=== PATIENT | male | born 1980 | race Two or more races ===

== ENCOUNTER 2017-04-01 12:04 | Day surgery (SDC) | payer OTHER ==
[2017-04-01 13:50] LABS: BASOPHIL 0.5 % (0-2.0); EOSINOPHIL 0.4 % (0-4.5); MCH 27.1 pg (25.7-33.7); MCHC 32.3 g/dl (32.0-35.9); MEAN PLT VOLUME 8.1 fl (7.5-11.1); NEUTROPHILS 79.9 % (42.8-82.8); PLATELET COUNT 236 K/MM3 (134-434); RDW 14.3 % (11.9-15.9); WHITE BLOOD COUNT 12.3 K/mm3 (4.0-10.0)
[2017-04-01 14:24] LABS: ALBUMIN 3.7 g/dl (3.4-5.0); ALK PHOS 91 U/L (45-117); ANION GAP 8 (8-16); BILIRUBIN,TOTAL 0.4 mg/dL (0.2-1.0); CALCIUM 8.9 mg/dL (8.5-10.1); CO2 28 mmol/L (21-32); CREATININE 0.8 mg/dL (0.7-1.3); GLUCOSE,RANDOM 84 mg/dL (74-106); SGOT/AST 13 U/L (15-37); SGPT/ALT 40 U/L (12-78); TOT PROT 7.8 g/dl (6.4-8.2)
[2017-04-01] MEDS ORDERED: morphine CARPU-JECT 4 MG/1 ML DISP.SYRIN IVPUSH ONE (14:34)
--- NOTE | 2017-04-01 14:36 | PDOC ---
Attending Attestation - Resident Resident Name: MillicentRafy - ED Attending Attestation I have performed the following: I have examined & evaluated the patient, The case was reviewed & discussed with the resident, I agree w/resident's findings & plan, Exceptions are as noted - HPI HPI: 04/01/17 14:35 Agree with the resident's HPI as documented in the electronic medical record. - Physicial Exam PE: 04/01/17 14:35 Agree with the resident's physical examination as documented in the electronic medical record. - Medical Decision Making 04/01/17 14:35 37-year-old male with no significant past medical history presents the emergency department with three-day history of rectal pain and swelling consistent with a perianal abscess. Plan: 1. Labs 2. Surgical consult for drainage as patient has a very low tolerance to examination of the area 3. Pain management 4. Observe and reevaluate
[2017-04-01] MEDS ORDERED: PIPERACILLIN/TAZOB 3.375 GM/50 ML PRE-DOCKED IV ONE (14:45)
[2017-04-01] MEDS ORDERED: PIPERACILLIN/TAZOB 3.375 GM 50 ML IVPB ONE (15:12)
[2017-04-01] MEDS ORDERED: morphine CARPU-JECT 2 MG/1 ML DISP.SYRIN ONE (15:12)
--- NOTE | 2017-04-01 15:17 | PDOC ---
History of Present Illness - General Chief Complaint: Hemorrhoids Stated Complaint: PAIN Time Seen by Provider: 04/01/17 12:35 - History of Present Illness Initial Comments: 04/01/17 15:13 37M w/ no PMH presenting with 1 week of pain in anus. Pt reports that his pain started a week ago, is knife-like, 10/10, worse with bowel movements. It was initially improved with 600mg ibuprofen q6h and depocaine, but not in the last few days. He reports feeling a swelling in his anus. He denies hx of constipation or any other GI problems. He denies SOB, n/v/d, and abdominal pain. 04/01/17 15:19 Past History - Past Medical History Allergies/Adverse Reactions: Allergies Allergy/AdvReac Type Severity Reaction Status Date / Time No Known Allergies Allergy Verified 04/01/17 12:20 Home Medications: Ambulatory Orders NK [No Known Home Medication] 04/01/17 Other medical history: denies Comment:: 04/01/17 15:16 PMH: none PSH: appendectomy, hernia Meds: none allergies: NKDA Fam Hx: none Social Hx: denies toxic habits - Surgical History Abdominal Surgery: Yes (hernia repair) Appendectomy: Yes - Immunization History Immunization Up to Date: Yes - Psycho/Social/Smoking Cessation Hx Suicidal Ideation: No Smoking History: Never smoked Hx Alcohol Use: No Drug/Substance Use Hx: No Review of Systems - Review of Systems Comments:: 04/01/17 15:16 GENERAL: No fever, chills, night sweats, or weakness. HEAD, EYES, EARS, NOSE AND THROAT: No change in vision, ear pain, or sore throat CARDIOVASCULAR: No chest pain or palpitations RESPIRATORY: No cough, wheezing, or hemoptysis. GASTROINTESTINAL: No nausea, vomiting, diarrhea, constipation, + blood in the stool. GENITOURINARY: No dysuria, frequency, or urgency MUSCULOSKELETAL: No joint or muscle swelling or pain. SKIN: No rashes or pruritis ENDOCRINE: No increased thirst. No abnormal weight change NEUROLOGIC: No headache, dizziness, loss of consciousness, or change in strength /sensation. *Physical Exam - Vital Signs Last Vital Signs Temp Pulse Resp BP Pulse Ox 98.5 F 101 H 18 132/86 100 04/01/17 12:20 04/01/17 12:20 04/01/17 12:20 04/01/17 12:20 04/01/17 12:20 - Physical Exam Comments: 04/01/17 15:17 GENERAL: Awake, alert, and fully oriented, in distress HEAD: normocephalic, atraumatic HEENT: PERRLA, EOMI, sclera anicteric, conjunctiva clear, hearing grossly normal , nares patent, oropharynx clear without exudate, moist mucosa NECK: Normal ROM, supple, no lymphadenopathy, JVD, or masses HEART: Regular rate and rhythm, normal S1 and S2, no murmurs, rubs or gallops, peripheral pulses normal and equal bilaterally. LUNGS: CTAB, no wheezing, no rales ABDOMEN: Soft, nontender, nondistended, normoactive bowel sounds. No guarding, no rebound. No masses EXTREMITIES: Normal range of motion, no edema. SKIN: Warm, dry, no rashes or lesions noted. NEUROLOGICAL: Cranial nerves II through XII grossly intact. Normal speech, normal gait, no focal sensorimotor deficits Rectal: visualization very difficult due to tenderness, abscess within anus, extremely tender to palpation, ED Treatment Course - LABORATORY CBC & Chemistry Diagram: 04/01/17 13:30 04/01/17 13:30 - ADDITIONAL ORDERS Additional order review: Laboratory Results 04/01/17 13:30 Sodium 139 Potassium 4.2 Chloride 103 Carbon Dioxide 28 Anion Gap 8 BUN 10 Creatinine 0.8 Creat Clearance w eGFR > 60 Random Glucose 84 Calcium 8.9 Total Bilirubin 0.4 AST 13 L ALT 40 Alkaline Phosphatase 91 Total Protein 7.8 Albumin 3.7 04/01/17 13:30 RBC 5.61 H MCV 84.0 MCHC 32.3 RDW 14.3 MPV 8.1 Neutrophils % 79.9 Lymphocytes % 11.3 Monocytes % 7.9 Eosinophils % 0.4 Basophils % 0.5 - Medications Given in the ED: ED Medications Discontinued Medications Generic Name Dose Route Start Last Admin Trade Name Freq PRN Reason Stop Dose Admin Oxycodone/Acetaminophen 1 combo 04/01/17 13:12 04/01/17 13:30 Percocet 5/325 - PO 04/01/17 13:13 1 combo ONCE ONE Administration Medical Decision Making - Medical Decision Making 04/01/17 15:19 04/01/17 15:19 37M w/ no PMH presenting with 1 week of severe anal pain secondary to anal abscess. Pt admitted for surgery. *DC/Admit/Observation/Transfer Diagnosis at time of Disposition: Perianal abscess - Discharge Dispostion Condition at time of disposition: Stable Admit: Yes
[2017-04-01] MEDS ORDERED: MIDAZOLAM HCL 2 MG/2 ML SINGLE DOSE VIAL ONE ×2 (16:22)
--- NOTE | 2017-04-01 16:28 | HP ---
Admitting History and Physical - Admission Chief Complaint: Rectal abscess/pain History of Present Illness: HPI: This is a 37 year old male without significant past medical hx. He reported to eating spicy food and then got a anal fissure. He then had a 20 hr bus ride round trip which worsened the mele rectal region with increased swelling and pain for a few days. Today, he is exquisitely tender and unable to tolerate a exam in ED. Surgery was called for I&D under sedation in the OR. Currently in Pre op he is in pain, and its painful for him to apply pressure by sitting up in bed. He denies fever, chills, sob, chest pain. History Source: Patient Limitations to Obtaining History: No Limitations - Smoking History Smoking history: Never smoked - Alcohol/Substance Use Hx Alcohol Use: No Home Medications - Allergies Allergies/Adverse Reactions: Allergies Allergy/AdvReac Type Severity Reaction Status Date / Time No Known Allergies Allergy Verified 04/01/17 12:20 - Home Medications Home Medications: Ambulatory Orders NK [No Known Home Medication] 04/01/17 Review of Systems - Review of Systems Constitutional: reports: No Symptoms Eyes: reports: No Symptoms HENT: reports: No Symptoms Neck: reports: No Symptoms Cardiovascular: reports: No Symptoms Respiratory: reports: No Symptoms Gastrointestinal: reports: No Symptoms Genitourinary: reports: Other (rectal tenerness, swelling) Musculoskeletal: reports: No Symptoms Integumentary: reports: No Symptoms Neurological: reports: No Symptoms Endocrine: reports: No Symptoms Hematology/Lymphatic: reports: No Symptoms Psychiatric: reports: No Symptoms Physical Examination Vital Signs: Vital Signs Temperature 98.5 F 04/01/17 12:20 Pulse Rate 101 H 04/01/17 12:20 Respiratory Rate 18 04/01/17 12:20 Blood Pressure 132/86 04/01/17 12:20 O2 Sat by Pulse Oximetry (%) 100 04/01/17 12:20 Constitutional: Yes: Calm Eyes: Yes: Conjunctiva Clear HENT: Yes: Atraumatic Neck: Yes: Supple Cardiovascular: Yes: Regular Rate and Rhythm, S1, S2 Respiratory: Yes: Regular, CTA Bilaterally Gastrointestinal: Yes: Normal Bowel Sounds, Soft Renal/: Yes: Other (unable to ascess rectum, very tender) Musculoskeletal: Yes: WNL Extremities: Yes: WNL Edema: No Peripheral Pulses WNL: No Neurological: Yes: Alert, Oriented, Cran Nerves II-XII Intact Psychiatric: Yes: Alert, Oriented Problem List - Problems (1) Perianal abscess Code(s): K61.0 - ANAL ABSCESS Assessment/Plan Assessment: 37 year old male admitted with mele rectal abscess Plan: 1. Mele rectal abscess - For surgery I&D today - Zosyn in ED - Follow wound cx - Start ceftriaxone, flagyl - Morphine prn 2. PPx - SCDs Visit type - Emergency Visit Emergency Visit: Yes ED Registration Date: 04/01/17 Care time: The patient presented to the Emergency Department on the above date and was hospitalized for further evaluation of their emergent condition. - New Patient This patient is new to me today: Yes Date on this admission: 04/01/17 - Critical Care Critical Care patient: No
--- NOTE | 2017-04-01 16:46 | CONSULT ---
- Consultation REQUESTING PROVIDER: Belgica Perez MD CONSULT REQUEST: We have been asked to surgically evaluate this patient for rectal pain PCP:Shaista Carrillo HISTORY OF PRESENT ILLNESS: CTSP for evaluation and management of sudden rectal pain; NOC; it started after eating spicy food; he has no other GI c/o. PMHx: none PSHx: none Home Medications Medication Instructions Recorded NK [No Known Home Medication] 04/01/17 Allergies Allergy/AdvReac Type Severity Reaction Status Date / Time No Known Allergies Allergy Verified 04/01/17 12:20 PHYSICAL EXAM: GENERAL: Awake, alert, and fully oriented, in no acute distress. HEAD: Normal with no signs of trauma. EYES: sclera anicteric, conjunctiva clear. ABDOMEN: Soft, nontender, not distended, normoactive bowel sounds, no guarding, no rebound, no masses. No organomegaly. MUSCULOSKELETAL: Normal ROM at all joints. No bony deformities or tenderness. No CVA tenderness. UPPER EXTREMITIES: 2+ pulses, warm, well-perfused. No cyanosis. Cap refill <2 seconds. No peripheral edema. LOWER EXTREMITIES: 2+ pulses, warm, well-perfused. No calf tenderness. No peripheral edema. NEUROLOGICAL: Normal speech, gait not observed. PSYCH: Cooperative. Good eye contact. Appropriate mood and affect. SKIN: Warm, dry, normal turgor, no rashes or lesions noted. RECTAL: TTP in perineum and perirectal area precluding focused exam Vital Signs Temperature 98.5 F 04/01/17 12:20 Pulse Rate 101 H 04/01/17 12:20 Respiratory Rate 18 04/01/17 12:20 Blood Pressure 132/86 04/01/17 12:20 O2 Sat by Pulse Oximetry (%) 100 04/01/17 12:20 Lab Results WBC 12.3 K/mm3 (4.0-10.0) H 04/01/17 13:30 RBC 5.61 M/mm3 (4.00-5.60) H 04/01/17 13:30 Hgb 15.2 GM/dL (11.7-16.9) 04/01/17 13:30 Hct 47.1 % (35.4-49) 04/01/17 13:30 MCV 84.0 fl (80-96) 04/01/17 13:30 MCHC 32.3 g/dl (32.0-35.9) 04/01/17 13:30 RDW 14.3 % (11.9-15.9) 04/01/17 13:30 Plt Count 236 K/MM3 (134-434) 04/01/17 13:30 Sodium 139 mmol/L (136-145) 04/01/17 13:30 Potassium 4.2 mmol/L (3.5-5.1) 04/01/17 13:30 Chloride 103 mmol/L (98-107) 04/01/17 13:30 Carbon Dioxide 28 mmol/L (21-32) 04/01/17 13:30 Anion Gap 8 (8-16) 04/01/17 13:30 BUN 10 mg/dL (7-18) 04/01/17 13:30 Creatinine 0.8 mg/dL (0.7-1.3) 04/01/17 13:30 Random Glucose 84 mg/dL (74-106) 04/01/17 13:30 Calcium 8.9 mg/dL (8.5-10.1) 04/01/17 13:30 IMP: perirectal abscess PLAN: EUA; I and D perianal/perirectal abscess; r/b/t d/w the patient; possible fistula in ano d/w the patient; informed consent obtained. Toy Evangelista MD FACS Visit type - Case Type Case Type: ED Admission - Emergency Emergency Visit: Yes ED Registration Date: 04/01/17 Care time: The patient presented to the Emergency Department on the above date and was hospitalized for further evaluation of their emergent condition. - New patient This patient is new to me today: Yes Date on this admission: 04/01/17 - Critical Care Critical Care patient: No
[2017-04-01] MEDS ORDERED: morphine CARPU-JECT 4 MG/1 ML DISP.SYRIN IVPUSH PRN (16:47)
[2017-04-01] MEDS ORDERED: PROPOFOL 20 ML ONE (16:51)
[2017-04-01] MEDS ORDERED: ACETAMINOPHEN 325 MG TABLET (FP) PO PRN (16:51)
[2017-04-01] MEDS ORDERED: ONDANSETRON 4 MG/2 ML VIAL IVPB PRN (16:51)
[2017-04-01] MEDS ORDERED: SODIUM CHLORIDE 1,000 ML IV SCH (17:00)
[2017-04-01] MEDS ORDERED: morphine CARPU-JECT 2 MG/1 ML DISP.SYRIN IVPUSH PRN (17:10)
[2017-04-01] MEDS ORDERED: PROMETHAZINE HCL 25 MG/1 ML VIAL IVPUSH PRN (17:21)
[2017-04-01] MEDS ORDERED: ONDANSETRON 4 MG/2 ML VIAL IVPUSH PRN (17:21)
[2017-04-01] MEDS ORDERED: LACTATED RINGERS SOLUTION 1,000 ML IV SCH (17:30)
[2017-04-01] MEDS ORDERED: METRONIDAZOLE 500 MG PREMIXED 100 ML IVPB SCH (18:00)
[2017-04-01] MEDS ORDERED: METRONIDAZOLE 500 MG PREMIXED 100 ML IVPB ONE (18:15)
[2017-04-01] MEDS ORDERED: cefTRIAXone 1 GM/50 ML BAG (PRE-DOCKED) IVPB ONE (19:12)
--- NOTE | 2017-04-01 19:20 | OP ---
DATE OF OPERATION: 04/01/2017 PREOPERATIVE DIAGNOSIS: Left perianal/perirectal abscess. POSTOPERATIVE DIAGNOSIS: Left perianal/perirectal abscess. PROCEDURE: Exam under anesthesia, and incision and drainage of left perianal/perirectal abscess. SURGEON: Toy Evangelista M.D. ANESTHESIA: Spinal. OPERATIVE FINDINGS: A left perianal, perirectal abscess. The rest of the findings were unremarkable. PROCEDURE: The patient was placed on the operating room table in supine position, and after the induction of regional anesthesia, patient was placed in dorsal lithotomy position. Timeout was taken, and the perianal and perirectal area were prepped with Betadine and draped in sterile fashion. Exam under anesthesia did not reveal any digital rectal masses, and showed a bulging soft tissue in the left perianal, perirectal area consistent with an abscess. Incision was made with scalpel and taken down through skin and subcutaneous tissue, and purulent material drained and sent for culture and sensitivity. All loculations were digitally broken up, and then copious irrigation was carried out with normal saline and peroxide. Hemostasis was secured with electrocautery, and then the wound was packed with 1-inch iodoform gauze. Dry sterile dressings were placed, and a Roman shield dressing was placed, and the procedure terminated at this point, and the patient transferred to the postanesthesia care unit in stable condition, awake and alert. Estimated blood loss minimal. Drains 1-inch iodoform packing. Specimen, culture and sensitivity of abscess to microbiology. The specimens none. I, Even Tonja, was physically present in the operating room from the time the patient was placed on the operating room table until he was transferred to the post-anesthesia care unit in my accompaniment. MD SHARRON Mendieta/[id number]
[2017-04-01] MEDS: CEFTRIAXONE 50 ML IVPB SCH (19:40)
[2017-04-01 20:35] VITALS: BMI 31.0
[2017-04-01] MEDS ORDERED: oxyCODONE HCL 5 MG TABLET PO ONE (23:45)
[2017-04-01] MEDS ORDERED: ACETAMINOPHEN 325 MG TABLET (FP) PO ONE (23:45)
[2017-04-02] MEDS: METRONIDAZOLE 500 MG PREMIXED 100 ML IVPB SCH ×2 (01:54→09:18)
[2017-04-02] MEDS ORDERED: oxyCODONE HCL 5 MG TABLET PO PRN (08:00)
[2017-04-02] MEDS ORDERED: oxyCODONE HCL 5 MG TABLET PO ONE (08:30)
[2017-04-02 08:50] LABS: BASOPHIL 0.4 % (0-2.0); EOSINOPHIL 1.3 % (0-4.5); MCHC 32.5 g/dl (32.0-35.9); MEAN CELL VOLUME 82.9 fl (80-96); MEAN PLT VOLUME 8.3 fl (7.5-11.1); NEUTROPHILS 68.8 % (42.8-82.8); PLATELET COUNT 240 K/MM3 (134-434); RDW 13.8 % (11.9-15.9); WHITE BLOOD COUNT 10.1 K/mm3 (4.0-10.0)
[2017-04-02 09:22] LABS: ALBUMIN 3.3 g/dl (3.4-5.0); ANION GAP 8 (8-16); BILIRUBIN,TOTAL 0.7 mg/dL (0.2-1.0); CALCIUM 8.3 mg/dL (8.5-10.1); CO2 27 mmol/L (21-32); CREATININE 0.7 mg/dL (0.7-1.3); GLUCOSE,RANDOM 88 mg/dL (74-106); SGOT/AST 9 U/L (15-37); SGPT/ALT 26 U/L (12-78)
[2017-04-02 09:23] LABS: ALK PHOS 82 U/L (45-117)
[2017-04-02] MEDS: CEFTRIAXONE 50 ML IVPB SCH (10:00)
[2017-04-02] MEDS ORDERED: ACETAMINOPHEN 325 MG TABLET (FP) ONE (10:16)
[2017-04-02] MEDS ORDERED: ACETAMINOPHEN 325 MG TABLET (FP) PO PRN (10:16)
--- NOTE | 2017-04-02 10:56 | PN ---
Progress Note (short form) - Note Progress Note: Anesthesia post op note POD#1 S/P I&D perianal abscess, under spinal. Pat seen and examined. VSS. No apparent post anesthesia complications. signed off.
--- NOTE | 2017-04-02 14:03 | DS ---
Physical Exam: SUBJECTIVE: Patient seen and examined. He is tolerating the pain, he is on his side to off set pressure. Denies fever, chills. Dressing changed by Dr. Evangelista OBJECTIVE: Vital Signs Period Temp Pulse Resp BP Sys/Barriga Pulse Ox Last 24 Hr 98.1 F-100 F 70-86 14-20 96-125/52-79 95-99 PE Neuro: alert, awake, cn 2-12intact Pulm: CTAB CV: s1 s2 rrr no mrg Abd: s nt nd +bs : rectal tenderness, dressing sanguinous Ext: no le edema Laboratory Results - last 24 hr 04/01/17 04/02/17 04/02/17 13:30 07:00 07:00 WBC 10.1 H RBC 5.06 Hgb 13.7 Hct 42.0 MCV 82.9 MCH 27.0 MCHC 32.5 RDW 13.8 Plt Count 240 MPV 8.3 Neutrophils % 68.8 Lymphocytes % 19.2 D Monocytes % 10.3 H Eosinophils % 1.3 D Basophils % 0.4 Sodium 139 137 Potassium 4.2 4.1 Chloride 103 102 Carbon Dioxide 28 27 Anion Gap 8 8 BUN 10 10 Creatinine 0.8 0.7 Creat Clearance w eGFR > 60 > 60 Random Glucose 84 88 Calcium 8.9 8.3 L Total Bilirubin 0.4 0.7 D AST 13 L 9 L D ALT 40 26 D Alkaline Phosphatase 91 82 Total Protein 7.8 7.0 Albumin 3.7 3.3 L HOSPITAL COURSE: Date of Admission:04/01/17 Date of Discharge: 04/02/17 Minutes to complete discharge: 36 Discharge Summary Reason For Visit: PERIANAL ABCESS Current Active Problems Perianal abscess (Acute) Hospital Course: Initial Hospital Course: Briefly, this 37 year old male without significant past medical hx. He reported to eating spicy food and then got a anal fissure. He then had a 20 hr bus ride round trip which worsened the mele rectal region with increased swelling and pain for a few days. On admission in ED he was exquisitely tender and unable to tolerate a exam in ED. Surgery was called for I&D under sedation in the OR. Subsequent Hospital Course/Progress Note/Discharge Summary Assessment: 37 year old male admitted with mele rectal abscess Plan: 1. Mele rectal abscess - I&D in OR 04/01 - Received ceftriaxone flagyl - Wound cx pending - Per surgery no abx needed - Referral for outpt follow up in Dr. Evangelista office enclosed - Sitz bath BID, keep pressure off with frequent turning and ambulation - Pt aware and agrees to above plan Dispo: - Home with surgery follow up and pain meds - Pt mobile: f/u [phone] Condition: Stable - Instructions Diet, Activity, Other Instructions: Please return to the hospital if you have any new, persistent, or worsening symptoms. Make an appt with Dr. Evangelista as out patient for follow up (contact information in discharge paper work) SITZ BATH twice per day Take pain medication as needed for pain Change dressing and clean daily Referrals: Toy Evangelsita MD [Staff Physician] - 1 Week Disposition: HOME - Home Medications Comprehensive Discharge Medication List: Ambulatory Orders Oxycodone HCl 5 mg PO Q4H PRN #20 tablet MDD 6 04/02/17 Problem List - Problems (1) Perianal abscess Code(s): K61.0 - ANAL ABSCESS This patient is new to me today: No Emergency Visit: Yes Care time: The patient presented to the Emergency Department on the above date and was hospitalized for further evaluation of their emergent condition. Critical Care patient: No - Discharge Referral Referred to [facility] Med P.C.: No
[2017-04-02 14:56] VITALS: BP 110/70; PULSE 70; TEMP 98
== END 2017-04-02 14:57 | disposition home or self-care (01) ==
LOC: JER 12:04 → UNDOADMOB 15:11 → JERBED 15:11 → JASUSAT 17:11 → J6S 19:30 → JASUSAT 04-02 14:57
PROVIDERS: ATTEND Nurse Practitioner Acute Care
PROC: 0D9P0ZX Drainage of Rectum, Open Approach, Diagnostic (ICD-10-PCS; 2017-04-01)
PROC: 0D9Q0ZZ Drainage of Anus, Open Approach (ICD-10-PCS; principal; 2017-04-01 15:00)
DX: K61.2 Anorectal abscess (principal)
CPT/HCPCS: 36415; 80053; 85025; 87070; 87076; 87077; 87186; 87205; 94760; 99285-25